=== PATIENT | female | born 1960 | race African-American/Black ===

== ENCOUNTER 2021-06-21 12:49 | Outpatient (RCR) | payer MEDICAID, SELFPAY ==
[2021-06-21 13:33] LABS: Absolute Lymphocyte Count 8.25 X10^3/uL (0.83-4.51); Absolute Neutrophil Count 5.5 X10^3/uL (2.0-7.7); Basophil# 0.03 X10^3/uL; Basophil% 0.2 % (0-1); Eosinophil# 0.11 X10^3/uL; Eosinophils% 0.8 % (0-5); Hematocrit 40.8 % (37-47); Hemoglobin 13.4 g/dL (12.0-15.0); Lymphocyte # 8.25 X10^3/ul (0.83-4.51); Lymphocyte % 56.6 % (19-41); Mean Corp Hgb Conc 32.8 g/dL (32-36); Mean Corpuscular Volume 94.4 fL (81-99); Monocyte% 4.8 % (0-10); NRBC Flagged by Analyzer 0 % (0-5); Neutrophil # 5.45 X10^3/uL (2.7-7.7); Neutrophil % 37.3 % (47-70); POSITIVE DIFFERENTIAL YES; POSITIVE MORPHOLOGY YES; Platelet Count 287 K/mm3 (150-450); RBC Distribution Width CV 12.5 % (11.6-14.6); RBC Distribution Width SD 43.8 fl (35.1-43.9); Red Blood Count 4.32 M/mm3 (4.2-5.4); White Blood Count 14.6 K/mm3 (4.4-11.0)
[2021-06-21 13:35] LABS: Differential Indicated SCAN CRITERIA MET
[2021-06-21 13:57] LABS: LDH 178 U/L (84-246)
== END 2021-06-21 18:00 | disposition home or self-care (01) ==
LOC: LAB 12:49
PROVIDERS: PCP Internal Medicine
DX: C91.10 Chronic lymphocytic leukemia of B-cell type not having achieved remission (principal)
CPT/HCPCS: 36415; 83615; 85025

== ENCOUNTER 2021-06-23 12:53 | Outpatient (CLI) | payer MEDICAID, SELFPAY ==
[2021-06-23 14:46] LABS: Vitamin B12 466 pg/mL (211-911); Vitamin D,25 Hydroxy 21.9 ng/mL
[2021-06-23 14:57] LABS: Thyroid Stim Hormone (TSH) 1.31 uIU/mL (0.358-3.74)
== END 2021-06-23 23:59 | disposition home or self-care (01) ==
PROVIDERS: PCP Internal Medicine; Referring Provider Internal Medicine; Visit Provider Internal Medicine
DX: R53.83 Other fatigue (principal); E03.9 Hypothyroidism, unspecified
CPT/HCPCS: 36415; 82306; 82607; 82746; 84443

== ENCOUNTER → 2021-11-03 | Outpatient (CLI) | payer MEDICAID, SELFPAY ==
[2021-11-03 11:44] LABS: Absolute Lymphocyte Count 5.15 X10^3/uL (0.83-4.51); Absolute Neutrophil Count 5.7 X10^3/uL (2.0-7.7); Basophil# 0.02 X10^3/uL; Basophil% 0.2 % (0-1); Eosinophils% 0.9 % (0-5); Hematocrit 37.4 % (37-47); Hemoglobin 11.2 g/dL (12.0-15.0); Lymphocyte # 5.15 X10^3/ul (0.83-4.51); Lymphocyte % 43.8 % (19-41); Mean Corp Hgb Conc 29.9 g/dL (32-36); Mean Corpuscular Hgb 28.6 pg (27.0-32.0); Mean Corpuscular Volume 95.7 fL (81-99); Monocyte# 0.75 X10^3/uL; Monocyte% 6.4 % (0-10); NRBC Flagged by Analyzer 0 % (0-5); Neutrophil # 5.71 X10^3/uL (2.7-7.7); Neutrophil % 48.5 % (47-70); POSITIVE DIFFERENTIAL YES; POSITIVE MORPHOLOGY YES; Platelet Count 311 K/mm3 (150-450); RBC Distribution Width CV 13.1 % (11.6-14.6); RBC Distribution Width SD 45.7 fl (35.1-43.9); Red Blood Count 3.91 M/mm3 (4.2-5.4); White Blood Count 11.8 K/mm3 (4.4-11.0)
[2021-11-03 11:49] LABS: Differential Indicated SCAN CRITERIA MET
[2021-11-03 12:05] LABS: LDH 253 U/L (84-246)
[2021-11-03 14:40] LABS: Reactive Lymphocyte RARE
== END | disposition home or self-care (01) ==
PROVIDERS: PCP Internal Medicine
DX: C91.10 Chronic lymphocytic leukemia of B-cell type not having achieved remission (principal)
CPT/HCPCS: 36415; 83615; 85025

== ENCOUNTER 2021-12-23 08:50 | Day surgery (SDC) | payer MEDICAID, SELFPAY ==
[2021-12-23 09:14] VITALS: BP 154/90; PULSE 82; RESP 18; TEMP 36.4; O2SAT 95; BMI 41.5
[2021-12-23] MEDS: Lactated Ringers 1,000 ML 15 ML IV (09:26)
[2021-12-23] MEDS: Vancomycin IV 1,000 MG/200 ML BAG 200 MG IV (09:27)
[2021-12-23 09:45] LABS: Bedside Glucose 134 mg/dL (74-106)
--- NOTE | 2021-12-23 12:28 | RAD_ITS ---
STUDY: X-RAY - PELVIS REASON FOR EXAM: Female, 61 years old. Axonics , sacral neuromodulation therapy stage I. TECHNIQUE: 2 fluoroscopic views of the pelvis was obtained. COMPARISON: None. FINDINGS: Lower lumbar sacral posterior fusion. Thin sacral nerve stimulator catheter overlies the mid pelvis slightly right parasagittal. RAD/Pelvis 1 or 2 Views IMPRESSION: Sacral nerve stimulator catheter as above. Correlate with findings at fluoroscopy. Electronically Signed: Brando Antunez MD at 2:36 EDT Reading Location ID and State: [id number] / , Service support ,
[2021-12-23] MEDS: Lidocaine 1% /Epi 1:100 (20ml) 20 ML Vial (12:49)
[2021-12-23 13:36] VITALS: BP 117/69; BP 154/90; PULSE 80; RESP 16; TEMP 36.3; O2SAT 100
[2021-12-23 13:45] VITALS: BP 117/79; BP 154/90; PULSE 75; RESP 16; O2SAT 95
--- NOTE | 2021-12-23 13:57 | DCINST_ITS ---
Discharge Instructions Diet Discharge Diet: No restrictions Activity Discharge Activity: May Not Shower and - (No tub bathing, no swimming, keep area dry) Dressing / Incision Call your doctor if your incision/area has: Continuous Slow Oozing, Sudden Increased Bleeding, Increased Pain/ Swelling and Foul Smelling Discharge Call your doctor if you observe: Fever of 101 or Higher, Inability to urinate and Inability to have a bowel movement Change Dressing in: do not change dressing Cleanse incision/area with: Do not get Incision Wet and Keep Dressing Clean & Dry Follow Up Care Please Follow Up With: Emilee Leon MD When: Next week in the office, call for appointment Test Results: Test results from this visit will be discussed in further detail at your follow- up appointment, if applicable. Discharge Plan Admission Attending Provider: Emilee Leon Primary Care Provider: Ute Hernandez Discharge Orders/Prescriptions Prescriptions: New oxycodone-acetaminophen [oxycodone-acetaminophen] 5-325 mg tablet 2 tab PO Q8H PRN PRN (Reason: Pain) 7 Days Qty: 20 0RF cephalexin [cephalexin] 500 mg capsule 500 mg PO Q12 3 Days Qty: 6 0RF Continued albuterol sulfate 90 mcg/actuation HFA aerosol inhaler 2 puff inhalation Q6H PRN (Reason: ASTHMA) aspirin [Adult Aspirin Regimen] 81 mg tablet,delayed release (DR/EC) 81 mg PO DAILY bupropion HCl 300 mg tablet extended release 24 hr 300 mg PO QAM Label Comments: WELLBUTRIN levothyroxine 137 mcg capsule 150 mcg PO DAILY metformin 500 mg tablet 500 mg PO DAILY montelukast 10 mg tablet 10 mg PO DAILY ondansetron 4 mg tablet,disintegrating 4 mg PO Q8H PRN (Reason: Nausea) fexofenadine 180 mg Tablet 180 mg PO BID tramadol 50 mg tablet 50 mg PO PRN PRN (Reason: Pain) benzonatate 100 mg capsule 100 mg PO PRN PRN (Reason: Cough) lansoprazole [Prevacid] 30 mg Capsule,Delayed Release(Dr/Ec) 40 mg PO BID fluticasone propion-salmeterol [Advair Diskus] 500-50 mcg/dose blister with device 1 inh INHALATION DAILY Label Comments: INHALE 1 DOSE BY MOUTH TWICE DAILY Referrals / Follow Up: Ute Hernandez MD [Primary Care Provider] - Disposition Disposition (needs filled in before D/C Order can be placed): Home, Self Care
--- NOTE | 2021-12-23 13:59 | OP.PCM_ITS ---
Report of Operation Date of Procedure: 12/23/21 Pre-Operative Diagnosis: Urge incontinence Post-Operative Diagnosis: Same Surgery/Procedure Performed:: Axonics stage I Surgeon: Emilee Leon Type of Anesthesia: MAC Description of Procedure: The patient is a 61-year-old female with refractory urge incontinence and hypoactive detrusor function who now presents for stage I Axonics trial. Infor med consent was obtained. The patient was taken to the operating room and placed in a prone position on the operating room table. She is appropriately padded and secured to the table. Anesthesia monitored the head, neck, airway, IV access and vital signs throughout the case. Once anesthesia was appropriate ministered, the patient was prepped and draped in usual sterile fashion. Fluoroscopy was used to outline the sacrum in both AP and lateral views. The area overlying the S3 foramen was infiltrated with lidocaine and a needle was passed through the foramen. Testing revealed good shira response. The guidewire was then placed and an incision was made. The dilator was then inserted into appropriate positioning within the S3 foramen. The lead with the curved stylette was then placed. The dilating sheath was pulled back leaving the lead in place. All 4 leads were tested with good shira response. The lead was then tunneled into the preselected site which was already infiltrated and opened using a knife with Bovie cautery for hemostasis. The lead extension was then connected and tunneled contralaterally. The lead was buried with 3-0 Vicryl followed by 4-0 subcuticular suturing and skin glue. The incision over the lead insertion site was closed in the same fashion. The lead extension was secured using Steri-Strips. The battery was attached and the dressing with Op Site and tape was then applied. The patient then awakened and taken to the recovery room in good condition. There were no complications during this procedure. Grafts/Implants Used: Axonics lead and lead extension Complications None Admit VTE Documentation VTE Present on Admission: No VTE Pharm Prophylaxis ordered?: No Reason prophylaxis not ordered:: Treatment Not Indicated
[2021-12-23 14:02] VITALS: BP 133/89; BP 154/90; PULSE 69; RESP 16; O2SAT 98
[2021-12-23 14:03] VITALS: BP 121/84; BP 154/90; PULSE 64; RESP 16; TEMP 36.4; O2SAT 95
[2021-12-23 14:25] VITALS: BP 154/90
== END 2021-12-23 14:40 | disposition home or self-care (01) ==
LOC: SDC 08:51 → AC 08:52
PROVIDERS: PCP Internal Medicine; Referring Provider Urology; Visit Provider Urology
PROC: (CPT 51715; principal; 2021-12-23 10:55)
DX: N39.41 Urge incontinence (principal); I12.9 Hypertensive chronic kidney disease with stage 1 through stage 4 chronic kidney disease, or unspecified chronic kidney disease; N18.2 Chronic kidney disease, stage 2 (mild); E03.9 Hypothyroidism, unspecified; R35.1 Nocturia; N31.9 Neuromuscular dysfunction of bladder, unspecified
CPT/HCPCS: 51715; 00910; 72170; 76000; 82962; C1874; J7120; J2405

== ENCOUNTER 2022-01-06 06:48 | Day surgery (SDC) | payer MEDICAID, SELFPAY ==
[2022-01-06] VITALS (8 sets, daily range): BP systolic 119–152; BP diastolic 78–114; PULSE 74–94; RESP 16; TEMP 36–36.4; O2SAT 95–99; BMI 42.9
[2022-01-06] MEDS: Lactated Ringers 1,000 ML 15 ML IV (07:36)
[2022-01-06] MEDS: Vancomycin IV 1,000 MG/200 ML BAG 200 MG IV (07:37)
--- NOTE | 2022-01-06 08:14 | PCM.HP.STD ---
HPI - General HPI Narrative EDWINA GATICA, is a 61 F who presents for stage II Axonics implant after a successful stage I trial. Informed consent has been obtained. [facility] Medical History (Updated 12/23/21 @ 13:[address] Emilee Leon MD) Asthma Back pain Colon polyp COPD (chronic obstructive pulmonary disease) Depression Disease of thyroid gland FH: cholecystectomy Former smoker Gastric reflux History of leukemia History of stress test Hypertension Infectious viral hepatitis Post-menopausal Shortness of breath on exertion Urge incontinence Wears glasses Home Medications albuterol sulfate 90 mcg/actuation aerosol inhaler 2 puff inhalation Q6H PRN ASTHMA 07/14/21 [History Last Taken 01/06/22] aspirin 81 mg tablet,delayed release (Adult Aspirin Regimen) 81 mg PO DAILY 07/14/21 [History Last Taken 12/22/21] bupropion HCl 300 mg 24 hr tablet, extended release 300 mg PO QAM 07/14/21 [History Last Taken 12/22/21] levothyroxine 137 mcg capsule 150 mcg PO DAILY 07/14/21 [History Last Taken 12/22/21] metformin 500 mg tablet 500 mg PO DAILY 07/14/21 [History Last Taken 12/22/21] montelukast 10 mg tablet 10 mg PO DAILY 07/14/21 [History Last Taken 12/22/21] ondansetron 4 mg disintegrating tablet 4 mg PO Q8H PRN Nausea 07/14/21 [History Last Taken 12/22/21] benzonatate 100 mg capsule 100 mg PO PRN PRN Cough 12/16/21 [History Last Taken 12/22/21] fexofenadine 180 mg tablet 180 mg PO BID 12/16/21 [History Last Taken 12/22/21] fluticasone 500 mcg-salmeterol 50 mcg/dose blistr powdr for inhalation (Advair Diskus) 1 inh inhalation DAILY 12/16/21 [History Last Taken 12/22/21] lansoprazole 30 mg capsule,delayed release (Prevacid) 40 mg PO BID 12/16/21 [History Last Taken 12/22/21] tramadol 50 mg tablet 50 mg PO PRN PRN Pain 12/16/21 [History Last Taken 12/22/21] cephalexin 500 mg capsule 500 mg PO Q12 post-operative 3 days #6 CAPSULES 12/23/21 [Rx Last Taken Unknown] oxycodone-acetaminophen 5 mg-325 mg tablet 2 tab PO Q8H PRN PRN Pain 7 days #20 tabs 12/23/21 [Rx Last Taken Unknown] Allergy/AdvReac Type Severity Reaction Status Date / Time No Known Allergies Allergy Verified 01/06/22 07:15 Family History Mother CVA (cerebral vascular accident) Hyperlipidemia Colon cancer CAD (coronary artery disease) Stomach cancer Surgical History (Updated 12/16/21 @ 15:26 by Alaina Navarrete) H/O oophorectomy History of back surgery History of shoulder surgery History of surgery Hx of colonoscopy Hx of esophagogastroduodenoscopy Hx of hysterectomy Hx of hysterectomy Hx of rectal polypectomy Social History Smoking Status: Former smoker Tobacco: How many years used: 27 how long ago did patient quit smokin1994 Constitutional Constitutional: Denies chills, fatigue, fever(s), headache(s), lethargy or poor appetite Eyes Eyes: Reports systems reviewed and no addt'l complaints, except as documented ENT HEENT: Reports systems reviewed and no addt'l complaints, except as documented Cardiovascular Cardiovascular: Denies abdominal pain, chest pain, cyanosis, diaphoresis or dyspnea Respiratory/Chest Respiratory/Chest: Denies chest congestion, chest tightness, cough or dyspnea Gastrointestinal Gastrointestinal: Denies abdominal pain, anorexia, bloating or cramping Genitourinary Genitourinary: Reports urinary frequency, urinary incontinence and urinary urgency; Denies flank pain Musculoskeletal Musculoskeletal: Reports systems reviewed and no addt'l complaints, except as documented Integumentary Integumentary: Reports systems reviewed and no addt'l complaints, except as documented Neurologic Neurologic: Reports systems reviewed and no addt'l complaints, except as documented Psychiatric Psychiatric: Reports systems reviewed and no addt'l complaints, except as documented Endocrine Endocrinology: Reports systems reviewed and no addt'l complaints, except as documented Hematologic/Lymphatic Hematologic/Lymphatic: Reports systems reviewed and no addt'l complaints, except as documented Allergic/Immunologic Allergic/Immunologic: Reports systems reviewed and no addt'l complaints, except as documented Vital Signs Vital Signs Vital Signs: 01/06/22 07:17 01/06/22 07:17 Temperature 96.8 F L Temperature Source Temporal Pulse Rate 74 Respiratory Rate 16 Respiratory Pattern Normal Blood Pressure 149/97 H Blood Pressure Mean 114 Blood Pressure Source Monitor Blood Pressure Position Sitting Blood Pressure Location Left Arm Pulse Ox 98 Oxygen Delivery Method Room Air Weight Weight: 117 kg Body Mass Index (BMI) 42.9 Physical Exam Const alert, oriented x3 and no apparent distress General Appearance: cooperative, comfortable and well kempt HEENT normocephalic, hearing grossly normal bilaterally, external ears normal, external nose normal and moist oral mucous membranes Eyes General Eye: normal appearance of both eyes Neck supple General: trachea midline Lymph Lymphatic: no lymphedema noted Chest inspection of chest normal Chest: symmetrical chest wall rise Resp normal respiratory effort, normal air movement, no retractions and no use of accessory muscles Cardio regular rate and regular rhythm GI soft to palpation, non-tender and non-distended no CVA tenderness Back/Spine no CVA tenderness Extremity normal to inspection Skin no rashes or lesions noted Neuro oriented x3, CN's II-XII intact bilaterally and moves all extremities Psych mental status grossly normal Assessment & Plan Assessment/Plan (1) Urge incontinence: PLAN: Plan Proceed with Axonics stage II Procedure Criteria Type of Procedure Procedure Type: Elective Elective Risks - COVID COVID Risk Discussion: The surgeon/proceduralist and patient have discussed in detail the risk of exposure to and/or potential harm posed by the COVID-19 virus with having a surgery/procedure at this time versus the risk of delaying the surgery/procedure. It is not possible to know either the risk of delaying the surgery or procedure or chance of getting an infection with perfect accuracy, but a joint decision was made between the patient and the surgeon/proceduralist to proceed at this time with the scheduled surgery/procedure as indicated on the consent form.
--- NOTE | 2022-01-06 08:17 | DCINST_ITS ---
Discharge Instructions Diet Discharge Diet: No restrictions Activity Discharge Activity: May Shower (Tomorrow, avoid scrubbing, rubbing the incision site) May resume sexual activity in: 2 weeks Dressing / Incision Call your doctor if your incision/area has: Continuous Slow Oozing, Sudden Increased Bleeding, Increased Pain/ Swelling, Increased Redness, Foul Smelling Discharge and Swelling at the incision site Call your doctor if you observe: Fever of 101 or Higher, Inability to urinate and Inability to have a bowel movement Follow Up Care Please Follow Up With: Emilee Leon MD When: 2 weeks, call the office to make appointment Test Results: Test results from this visit will be discussed in further detail at your follow- up appointment, if applicable. Discharge Plan Admission Attending Provider: Emilee Leon Primary Care Provider: Ute Hernandez Discharge Orders/Prescriptions Prescriptions: New oxycodone-acetaminophen [oxycodone-acetaminophen] 5-325 mg tablet 2 tab PO Q8H PRN PRN (Reason: Pain) 2 Days Qty: 10 0RF cephalexin [cephalexin] 500 mg capsule 500 mg PO Q12 3 Days Qty: 6 0RF Continued albuterol sulfate 90 mcg/actuation HFA aerosol inhaler 2 puff inhalation Q6H PRN (Reason: ASTHMA) aspirin [Adult Aspirin Regimen] 81 mg tablet,delayed release (DR/EC) 81 mg PO DAILY bupropion HCl 300 mg tablet extended release 24 hr 300 mg PO QAM Label Comments: WELLBUTRIN levothyroxine 137 mcg capsule 150 mcg PO DAILY metformin 500 mg tablet 500 mg PO DAILY montelukast 10 mg tablet 10 mg PO DAILY ondansetron 4 mg tablet,disintegrating 4 mg PO Q8H PRN (Reason: Nausea) fexofenadine 180 mg Tablet 180 mg PO BID tramadol 50 mg tablet 50 mg PO PRN PRN (Reason: Pain) benzonatate 100 mg capsule 100 mg PO PRN PRN (Reason: Cough) lansoprazole [Prevacid] 30 mg Capsule,Delayed Release(Dr/Ec) 40 mg PO BID fluticasone propion-salmeterol [Advair Diskus] 500-50 mcg/dose blister with device 1 inh INHALATION DAILY Label Comments: INHALE 1 DOSE BY MOUTH TWICE DAILY oxycodone-acetaminophen 5-325 mg tablet 2 tab PO Q8H PRN PRN (Reason: Pain) 7 Days Qty: 20 0RF cephalexin 500 mg capsule 500 mg PO Q12 3 Days Qty: 6 0RF Referrals / Follow Up: Ute Hernandez MD [Primary Care Provider] - Disposition Disposition (needs filled in before D/C Order can be placed): Home, Self Care
--- NOTE | 2022-01-06 08:20 | PCM.OPRPT ---
Report of Operation Date of Procedure: 01/06/22 Pre-Operative Diagnosis: Urge incontinence Post-Operative Diagnosis: Same Surgery/Procedure Performed:: Axonics stage II Surgeon: Emilee Leon Type of Anesthesia: MAC Description of Procedure: The patient successfully passed stage I Axonics trial and now presents for stage II battery implantation. Informed consent was obtained. The patient was taken to the operating room and placed in a prone position on the operating room table. She was appropriately padded and secured to the table. Anesthesia monitored the head, neck, airway, IV access and vital signs throughout the case. Once anesthesia was appropriate administered, the patient was appropriately prepped and draped in usual sterile fashion. The incision overlying the pocket site was infiltrated with lidocaine. The incision was opened using a hemostat and Metzenbaums. Care was taken to avoid injury to the lead. The lead and lead extension were brought into the operative field. The lead extension was removed using the torque wrench. It was then cut with heavy scissors and removed from the field. The lead extension was then pulled from the contralateral side underneath the drapes. At this time the pocket site was enlarged using blunt dissection and cautery for hemostatic control. Once the pocket was big enough, the lead was dried and inserted into the battery and secured using the torque wrench. It was then placed into the pocket. Connections were checked and found to be appropriate. The pocket was then closed using 3-0 Vicryl interrupted suture followed by 4-0 subcuticular suture and then skin glue. The patient was then awakened and taken to the recovery room in good condition. There were no complications during this procedure. Grafts/Implants Used: Axonics battery Complications None Admit VTE Documentation VTE Present on Admission: Yes VTE Mechan Device Prophylaxis: SCD's VTE Pharm Prophylaxis ordered?: No Reason prophylaxis not ordered:: Treatment Not Indicated
[2022-01-06] MEDS: Lidocaine 1% /Epi 1:100 (20ml) 20 ML Vial (08:41)
== END 2022-01-06 10:06 | disposition home or self-care (01) ==
LOC: SDC 06:49 → AC 06:50
PROVIDERS: PCP Internal Medicine; Referring Provider Urology; Visit Provider Urology
PROC: (CPT 64590; principal; 2022-01-06 08:15)
DX: N39.41 Urge incontinence (principal); J44.9 Chronic obstructive pulmonary disease, unspecified; E07.9 Disorder of thyroid, unspecified; Z79.82 Long term (current) use of aspirin; Z87.891 Personal history of nicotine dependence
CPT/HCPCS: 64590; 00300; J7120; J2405

== ENCOUNTER → 2022-02-02 | Outpatient (CLI) | payer MEDICAID, SELFPAY ==
[2022-02-02 11:28] LABS: Absolute Lymphocyte Count 7.66 X10^3/uL (0.83-4.51); Absolute Neutrophil Count 4.6 X10^3/uL (2.0-7.7); Basophil# 0.04 X10^3/uL; Basophil% 0.3 % (0-1); Eosinophil# 0.11 X10^3/uL; Eosinophils% 0.9 % (0-5); Hematocrit 37.8 % (37-47); Lymphocyte # 7.66 X10^3/ul (0.83-4.51); Lymphocyte % 59.4 % (19-41); Mean Corp Hgb Conc 31.7 g/dL (32-36); Mean Corpuscular Hgb 28.6 pg (27.0-32.0); Monocyte# 0.47 X10^3/uL; Monocyte% 3.6 % (0-10); NRBC Flagged by Analyzer 0 % (0-5); Neutrophil # 4.58 X10^3/uL (2.7-7.7); Neutrophil % 35.5 % (47-70); POSITIVE DIFFERENTIAL YES; POSITIVE MORPHOLOGY YES; Platelet Count 236 K/mm3 (150-450); RBC Distribution Width SD 48.5 fl (35.1-43.9); White Blood Count 12.9 K/mm3 (4.4-11.0)
[2022-02-02 11:33] LABS: Differential Indicated SCAN CRITERIA MET
[2022-02-02 11:57] LABS: LDH 205 U/L (84-246)
[2022-02-02 12:28] LABS: Platelet Estimate ADEQUATE (ADEQ)
[2022-02-02 12:29] LABS: Red Cell Morphology NORM C+C NORMAL (NORM C&C)
== END | disposition home or self-care (01) ==
LOC: LAB 10:53
PROVIDERS: PCP Internal Medicine
DX: C91.10 Chronic lymphocytic leukemia of B-cell type not having achieved remission (principal)
CPT/HCPCS: 36415; 83615; 85025

== ENCOUNTER 2022-02-17 11:51 | Day surgery (SDC) | payer MEDICAID, SELFPAY ==
[2022-02-17] VITALS (10 sets, daily range): BP systolic 108–152; BP diastolic 62–92; PULSE 77–89; RESP 16; TEMP 36.5–36.7; O2SAT 95–100; BMI 44.4
[2022-02-17] MEDS: Lactated Ringers 1,000 ML 15 ML IV (12:56)
[2022-02-17 13:21] LABS: Bedside Glucose 101 mg/dL (74-106)
--- NOTE | 2022-02-17 13:48 | PCM.HP.STD ---
HPI - General General Date of Admission: 02/17/22 Chief Complaint: pain HPI Narrative EDWIAN GATICA, is a 61 F who presents for removal of Axonics lead and battery. It was working well for her until about 2 weeks when she started having significant pain at the battery site. She is now no longer able to sit or lie back. She also is starting to have pain at the lead insertion site. She denies fever, chills, nausea or vomiting. Her incisions are not draining and there is no erythema. Her voiding symptoms have however returned. Consent was obtained for explant of Axonics battery and lead. [facility] Medical History (Updated 02/17/22 @ 13:[address] Emilee Leon MD) Asthma Back pain Back pain Colon polyp COPD (chronic obstructive pulmonary disease) Depression Diabetes Dietary restriction DVT (deep venous thrombosis) Easy bruising FH: cholecystectomy Former smoker Gastric reflux High cholesterol History of leukemia History of steroid therapy History of stress test Hypertension Infectious viral hepatitis Low iron Marijuana use Pain at surgical incision Post-menopausal Restless legs Shortness of breath on exertion Urge incontinence Wears glasses Home Medications albuterol sulfate 90 mcg/actuation aerosol inhaler 2 puff inhalation Q6H PRN ASTHMA 07/14/21 [History Last Taken 01/06/22] aspirin 81 mg tablet,delayed release (Adult Aspirin Regimen) 81 mg PO DAILY 07/14/21 [History Last Taken 12/22/21] bupropion HCl 300 mg 24 hr tablet, extended release 300 mg PO QAM 07/14/21 [History Last Taken 12/22/21] levothyroxine 137 mcg capsule 150 mcg PO DAILY 07/14/21 [History Last Taken 12/22/21] metformin 500 mg tablet 500 mg PO DAILY 07/14/21 [History Last Taken 12/22/21] montelukast 10 mg tablet 10 mg PO DAILY 07/14/21 [History Last Taken 12/22/21] ondansetron 4 mg disintegrating tablet 4 mg PO Q8H PRN Nausea 07/14/21 [History Last Taken 02/17/22] benzonatate 100 mg capsule 100 mg PO PRN PRN Cough 12/16/21 [History Last Taken 12/22/21] fexofenadine 180 mg tablet 180 mg PO BID 12/16/21 [History Last Taken 12/22/21] fluticasone 500 mcg-salmeterol 50 mcg/dose blistr powdr for inhalation (Advair Diskus) 1 inh inhalation DAILY 12/16/21 [History Last Taken 12/22/21] lansoprazole 30 mg capsule,delayed release (Prevacid) 40 mg PO BID 12/16/21 [History Last Taken 02/17/22] tramadol 50 mg tablet 50 mg PO PRN PRN Pain 12/16/21 [History Last Taken 12/22/21] fluconazole 100 mg tablet 100 mg PO QODAY 02/16/22 [History Last Taken Unknown] losartan 25 mg tablet 25 mg PO DAILY 02/16/22 [History Last Taken 02/17/22] oxybutynin chloride 10 mg tablet,extended release 24 hr 10 mg PO DAILY 02/16/22 [History Last Taken Unknown] semaglutide 0.25 mg or 0.5 mg (2 mg/1.5 mL) subcutaneous pen injector (Ozempic) 0.25 mg subcut WE 02/16/22 [History Last Taken Unknown] Allergy/AdvReac Type Severity Reaction Status Date / Time No Known Allergies Allergy Verified 02/17/22 12:57 Family History Mother CVA (cerebral vascular accident) Hyperlipidemia Colon cancer CAD (coronary artery disease) Stomach cancer Surgical History H/O oophorectomy History of back surgery History of shoulder surgery History of surgery Hx of colonoscopy Hx of esophagogastroduodenoscopy Hx of hysterectomy Hx of hysterectomy Hx of rectal polypectomy Social History Smoking Status: Former smoker Tobacco: How many years used: 27 how long ago did patient quit smokin ROS Constitutional Constitutional: Denies chills or fever(s) Eyes Eyes: Reports systems reviewed and no addt'l complaints, except as documented ENT HEENT: Reports systems reviewed and no addt'l complaints, except as documented Cardiovascular Cardiovascular: Denies chest pain, dyspnea, nausea or vomiting Respiratory/Chest Respiratory/Chest: Denies chest congestion, chest tightness, cough or dyspnea Gastrointestinal Gastrointestinal: Reports systems reviewed and no addt'l complaints, except as documented Genitourinary Genitourinary: Reports urinary incontinence Musculoskeletal Musculoskeletal: Reports back pain Integumentary Integumentary: Reports systems reviewed and no addt'l complaints, except as documented Neurologic Neurologic: Reports systems reviewed and no addt'l complaints, except as documented Psychiatric Psychiatric: Reports systems reviewed and no addt'l complaints, except as documented Endocrine Endocrinology: Reports systems reviewed and no addt'l complaints, except as documented Hematologic/Lymphatic Hematologic/Lymphatic: Reports systems reviewed and no addt'l complaints, except as documented Allergic/Immunologic Allergic/Immunologic: Reports systems reviewed and no addt'l complaints, except as documented Vital Signs Vital Signs Vital Signs: 02/17/22 12:29 02/17/22 12:29 Temperature 98.1 F Temperature Source Temporal Pulse Rate 84 Respiratory Rate 16 Respiratory Pattern Normal Blood Pressure 152/92 H Blood Pressure Mean 112 Blood Pressure Source Monitor Blood Pressure Position Semi-Fowlers Blood Pressure Location Left Arm Pulse Ox 100 Oxygen Delivery Method Room Air Weight Weight: 121 kg Body Mass Index (BMI) 44.4 Physical Exam Const alert, oriented x3 and no apparent distress General Appearance: cooperative and comfortable HEENT normocephalic, hearing grossly normal bilaterally, external ears normal and external nose normal Eyes conjunctivae normal and no scleral icterus General Eye: normal appearance of both eyes Neck supple General: trachea midline Lymph Lymphatic: no lymphedema noted Chest inspection of chest normal Resp normal respiratory effort, normal air movement and no retractions Cardio regular rate and regular rhythm GI normal to inspection, nondistended, normoactive bowel sounds Narrative: Extremely tender at the battery site and also mildly tender at the lead insertion site on her right side Extremity normal to inspection Skin no rashes or lesions noted, no wounds and no petechiae Neuro oriented x3, CN's II-XII intact bilaterally and moves all extremities Psych mental status grossly normal, thought process normal and cooperative Results Lab / Micro Data Labs: Laboratory Results - last 24 hr 02/17/22 12:34: POC Glucose 101 Assessment & Plan Assessment/Plan (1) Urge incontinence: (2) Pain at surgical incision: PLAN: Plan Explant Axonics battery and lead Informed consent has been obtained
--- NOTE | 2022-02-17 13:54 | PCM.OPRPT ---
Problems Associated Problem List Diagnoses (1) Pain at surgical incision: (2) Urge incontinence: Report of Operation Date of Procedure: 02/17/22 Pre-Operative Diagnosis: Incisional pain, urge incontinence Post-Operative Diagnosis: Same Surgery/Procedure Performed:: Explant Axonics battery and lead Surgeon: Emilee Leon Type of Anesthesia: MAC Description of Procedure: The patient is a 61-year-old female with successful management of her urinary symptoms with Axonics. Approximately 2 weeks ago she began to develop pain at the pocket site which is now extended to the lead insertion site. The pain has increased to the point she is unable to lie on the pocket site or sit. Informed consent was obtained for removal of the lead and battery. The patient was taken to the operating room and placed on the operating room table in a prone position. She was appropriately padded and secured to the table. Anesthesia monitored the head, neck, airway, IV access and vital signs during the case. Once anesthesia was appropriate ministered, the patient was prepped and draped in usual sterile fashion. The pocket site and lead insertion site were both infiltrated with lidocaine. Incisions were made using the knife. Serosanguineous fluid exited from around the battery. Using Bovie cautery and blunt dissection, the pocket site was opened until the battery was identified and brought into the operative field. Cultures were taken of the pocket. The lead was grasped and cut removing the battery from the field. Through the incision of the lead insertion site, the lead was identified and grasped using hemostat. The lead was brought into the operative field and with traction the lead was removed in its entirety. These areas were irrigated for infection management. Interrupted sutures were used to close the skin loosely. Gauze dressings were applied. The patient was then awakened and taken to the recovery room in good condition. There were no complications during this procedure. Grafts/Implants Used: Axonics battery and lead Complications None Admit VTE Documentation VTE Present on Admission: Yes VTE Mechan Device Prophylaxis: SCD's VTE Pharm Prophylaxis ordered?: No Reason prophylaxis not ordered:: Treatment Not Indicated
[2022-02-17] MEDS: Lidocaine 2% /Epi 1:100 (50ml) 50 ML Vial (14:23)
--- NOTE | 2022-02-17 14:46 | DCINST_ITS ---
Discharge Instructions Diet Discharge Diet: No restrictions Activity Discharge Activity: No Restrictions and May Shower May resume sexual activity in: 2 weeks Dressing / Incision Call your doctor if your incision/area has: Continuous Slow Oozing, Sudden Increased Bleeding, Increased Pain/ Swelling, Increased Redness, Foul Smelling Discharge and Swelling at the incision site Call your doctor if you observe: Fever of 101 or Higher, Inability to urinate and Inability to have a bowel movement Additional Dressing/Incision Instructions:: Change the gauze twice a day, keep dry and clean Follow Up Care Please Follow Up With: Emilee Leon MD When: 1 week, call office for appointment Test Results: Test results from this visit will be discussed in further detail at your follow- up appointment, if applicable. Discharge Plan Admission Attending Provider: Emilee Leon Primary Care Provider: Ute Hernandez Discharge Orders/Prescriptions Prescriptions: New oxycodone-acetaminophen [oxycodone-acetaminophen] 5-325 mg tablet 2 tab PO Q8H PRN PRN (Reason: Pain) 3 Days Qty: 20 0RF cephalexin [cephalexin] 500 mg capsule 500 mg PO 3XD 3 Days Qty: 15 0RF Continued albuterol sulfate 90 mcg/actuation HFA aerosol inhaler 2 puff inhalation Q6H PRN (Reason: ASTHMA) aspirin [Adult Aspirin Regimen] 81 mg tablet,delayed release (DR/EC) 81 mg PO DAILY bupropion HCl 300 mg tablet extended release 24 hr 300 mg PO QAM Label Comments: WELLBUTRIN levothyroxine 137 mcg capsule 150 mcg PO DAILY metformin 500 mg tablet 500 mg PO DAILY montelukast 10 mg tablet 10 mg PO DAILY ondansetron 4 mg tablet,disintegrating 4 mg PO Q8H PRN (Reason: Nausea) fexofenadine 180 mg Tablet 180 mg PO BID tramadol 50 mg tablet 50 mg PO PRN PRN (Reason: Pain) benzonatate 100 mg capsule 100 mg PO PRN PRN (Reason: Cough) lansoprazole [Prevacid] 30 mg Capsule,Delayed Release(Dr/Ec) 40 mg PO BID fluticasone propion-salmeterol [Advair Diskus] 500-50 mcg/dose blister with device 1 inh INHALATION DAILY Label Comments: INHALE 1 DOSE BY MOUTH TWICE DAILY fluconazole 100 mg Tablet 100 mg PO QODAY oxybutynin chloride 10 mg Tablet Extended Release 24hr 10 mg PO DAILY losartan 25 mg Tablet 25 mg PO DAILY Ozempic 0.25 mg or 0.5 mg(2 mg/1.5 mL) Pen Injector 0.25 mg SUBCUT WE Rx Instructions: for 4 doses Referrals / Follow Up: Ute Hernandez MD [Primary Care Provider] - Disposition Disposition (needs filled in before D/C Order can be placed): Home, Self Care
[2022-02-17] MEDS: HYDROcodone Bitartrate/Apap 5/325 Tablet PO (15:49)
== END 2022-02-17 16:21 | disposition home or self-care (01) ==
LOC: SDC 11:51 → AC 11:57
PROVIDERS: PCP Internal Medicine; Referring Provider Urology; Visit Provider Urology
PROC: (CPT 64595; principal; 2022-02-17 14:05)
DX: N39.41 Urge incontinence (principal); J44.9 Chronic obstructive pulmonary disease, unspecified; E11.9 Type 2 diabetes mellitus without complications; Z87.891 Personal history of nicotine dependence; Z79.84 Long term (current) use of oral hypoglycemic drugs; Z79.82 Long term (current) use of aspirin
CPT/HCPCS: 64595; 64585; 00300; 82962; 87070; 87075; 87205; J7040; J7120; J2405